=== PATIENT | female | born 1960 | race Caucasian/White ===

== ENCOUNTER 2016-10-18 14:52 | Emergency (ER) | payer BC ==
[2016-10-18 15:02] VITALS: BP 125/66
[2016-10-18] MEDS ORDERED: HYDROmorphone 1 MG/ML Syringe IVPUSH ONE (15:11)
[2016-10-18] MEDS ORDERED: Sodium Chloride 0.9% 10 ML Syringe FLUSH PRN (15:11)
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
[2016-10-18] MEDS ORDERED: Ketorolac 30 MG/ML SDV IM ONE (16:06)
== END 2016-10-18 16:21 | disposition home or self-care (01) ==
LOC: DL.ED 14:52
DX: S76.012A Strain of muscle, fascia and tendon of left hip, initial encounter (principal); I10 Essential (primary) hypertension; Z98.890 Other specified postprocedural states; Z88.8 Allergy status to other drugs, medicaments and biological substances; Z79.899 Other long term (current) drug therapy; Z90.49 Acquired absence of other specified parts of digestive tract; F17.210 Nicotine dependence, cigarettes, uncomplicated; X50.9XXA Other and unspecified overexertion or strenuous movements or postures, initial encounter
CPT/HCPCS: 73502; 96372; 96374; 99283; J1170; J1885; J2360; J7050